=== PATIENT | male | born 1980 | race Hispanic/Latino ===

== ENCOUNTER 2018-10-11 06:03 | Emergency (ER) | payer BC, OTHER ==
[~2018-10-11] VITALS: Ht 167.6 cm; Wt 81.2 kg
--- OUTSIDE RECORDS SUMMARY | 2018-10-11 06:05 | XMS REPORT | Clinical Summary ---
Author Author [facility] Organization [facility] Address Unknown Phone Unavailable Care Team Providers Care Personnel Worker Name Role Phone Stephen Jay MD PCP Unavailable Allergies No Known Allergies Medications End Date Status Medication Sig Dispensed Refills Start Date 02/01/2018 methylPREDNISolone follow 21 tablet 0 (MEDROL DOSEPAK) 4 mg package 8 tablet directions Active Problems Not on file Encounters Care Team Description Date Type Specialty Kelly Horton MD Ptosis of eyelid, right (Primary Dx); Eyelid edema, right 03/10/2018 Office Visit Ophthalmology Kelly Horton MD Ptosis of eyelid, right (Primary Dx); Eyelid edema, right 01/27/2018 Office Visit Ophthalmology after 10/10/2017 Social History Date Tobacco Use Types Packs/Day Years Used Never Smoker Smokeless Tobacco: Never Used Alcohol Use Drinks/Week oz/Week Comments No Sex Assigned at Date Recorded Not on file Industry Job Start Date Occupation Not on file Not on file Not on file Travel End Travel History Travel Start No recent travel history available. Last Filed Vital Signs Not on file Plan of Treatment Health Maintenance Due Date Last Done Comments INFLUENZA VACCINE 02/10/2018 04/12/2012 Results Not on fileafter 10/10/2017 Insurance Payer Benefit Subscriber ID Type Phone Address Plan / Group BCBS BCBS xxxxxxxxxxxx PPO CHOICE PPO/SINDY CAMERON PPO (Home) [place] [address] Advance Directives Patient has advance care planning documents on file. For more information, dada noyola contact: Twin Yanez [address] [place] [phone]
[2018-10-11 06:52] LABS: BASOPHILS # (AUTO) 0.1 (0.0-0.1); BASOPHILS % 0.7 % (0.0-1.0); EOSINOPHILS % 0.1 % (0.0-6.0); HEMATOCRIT 61.5 % (38.2-49.6); HEMOGLOBIN 20.5 g/dL (14.0-18.0); LYMPHOCYTES # (AUTO) 2.6 (1.0-3.2); LYMPHOCYTES % 15.7 % (18.0-39.1); MEAN CORPUSCULAR HEMOGLOBIN 29.8 pg (28-32); MEAN CORPUSCULAR HGB CONC 33.3 g/dL (31-35); MEAN CORPUSCULAR VOLUME 89.3 fL (81-99); MONOCYTES % 6.4 % (4.4-11.3); NEUTROPHILS # (AUTO) 12.3 (2.1-6.9); NEUTROPHILS % 75.9 % (38.7-80.0); PLATELET COUNT 334 x10e3/uL (140-360); RED BLOOD COUNT 6.89 x10e6/uL (4.3-5.7); RED CELL DISTRIBUTION WIDTH 13.7 % (11.7-14.4)
--- NOTE | 2018-10-11 06:55 | Diagnostic Imaging Report ---
EXAMINATION: CHEST 2 VIEWS INDICATION: cough COMPARISON: None FINDINGS: PA and lateral views TUBES and LINES: None. LUNGS: There is no evidence of pneumonia or pulmonary edema. PLEURA: No pleural effusion or pneumothorax. HEART AND MEDIASTINUM: The cardiomediastinal silhouette is unremarkable. BONES AND SOFT TISSUES: No acute osseous lesion. Soft tissues are unremarkable. UPPER ABDOMEN: No free air under the diaphragm. IMPRESSION: No acute thoracic abnormality. Signed by: DR. Britton Junior MD on 10/11/2018 6:52 AM
[2018-10-11 07:07] LABS: ALBUMIN 3.7 g/dL (3.5-5.0); ALBUMIN/GLOBULIN RATIO 0.9 (0.8-2.0); ANION GAP 11.9 mmol/L (8-16); CALCIUM 9.7 mg/dL (8.4-10.2); CREATININE, SERUM 1.48 mg/dL (0.72-1.25); POTASSIUM 3.9 mmol/L (3.5-5.1)
[2018-10-11 07:13] LABS: CREATINE KINASE MB 5.4 ng/mL (0-5.0)
[2018-10-11] MEDS ORDERED: SODIUM CHLORIDE 0.9% 1000ML 1,000 ML IV ONE (07:45)
== END 2018-10-11 08:58 | disposition home or self-care (01) ==
LOC: ER 06:03
DX: R05 Cough (principal); J40 Bronchitis, not specified as acute or chronic
CPT/HCPCS: 36415; 71046; 80053; 82550; 82553; 84484; 85025; 85379; 93005; 99283; J7030

== ENCOUNTER 2018-10-25 17:13 | Emergency (ER) | payer BC ==
[~2018-10-25] VITALS: Ht 167.6 cm; Wt 82.6 kg
--- OUTSIDE RECORDS SUMMARY | 2018-10-25 17:15 | XMS REPORT | Clinical Summary ---
Author Author [employer] Organization [facility] Address Unknown Phone Unavailable Care Team Providers Care Global Coordinator Name Role Phone Stephen Jay MD PCP [...] edema, right 01/27/2018 Office Visit Ophthalmology after 10/24/2017 Social History Date Tobacco Use Types Packs/Day [...] Due Date Last Done Comments INFLUENZA VACCINE 02/10/2019 04/12/2012 Results Not on fileafter 10/24/2017 Insurance Payer Benefit Subscriber ID Type Phone Address Plan / Group BCBS BCBS xxxxxxxxxxxx PPO CHOICE PPO/SINDY CAMERON PPO (Home) [place] [address] Advance Directives Patient has advance care planning documents on file. For more information, dada noyola contact: Twin Yanez [address] [place] [phone]
--- OUTSIDE RECORDS SUMMARY | 2018-10-25 17:15 | XMS REPORT | Continuity of Care Document ---
Author Author [facility] Address Unknown Phone Unavailable Problems Problem Status Onset Date Classification Date Reported Comments Source Medications Medication Details Route Status Patient Instructions Ordering Provider Order Date Source Allergies, Adverse Reactions, Alerts Substance Category Reaction Severity Reaction type Status Date Reported Comments Source No Known Drug Allergies Unknown Allergy to Substance Active 10/11/2009 [facility] Immunizations Immunization Date Given Site Status Last Updated Comments Source Results Order Name Results Value Reference Range Date Interpretation Comments Source Blood leukocytes automated count (number/volume) 16.22 4.8 - 10.8 10/11/2018 [facility] Blood erythrocytes automated count (number/volume) 6.89 4.3 - 5.7 10/11/2018 [facility] Blood hemoglobin measurement (moles/volume) 20.5 14.0 - 18.0 10/11/2018 [facility] Automated blood hematocrit (volume fraction) 61.5 38.2 - 49.6 10/11/2018 [facility] Automated erythrocyte mean corpuscular volume 89.3 81 - 99 10/11/2018 [facility] Automated erythrocyte mean corpuscular hemoglobin (mass per erythrocyte) 29.8 28 - 32 10/11/2018 [facility] Automated erythrocyte mean corpuscular hemoglobin concentration measurement (mass/volume) 33.3 31 - 35 10/11/2018 [facility] RDW BldCo-Rto 13.7 11.7 - 14.4 10/11/2018 [facility] Automated blood platelet count (count/volume) 334 140 - 360 10/11/2018 [facility] Automated blood segmented neutrophil count as percentage of total leukocytes 75.9 38.7 - 80.0 10/11/2018 [facility] Automated blood lymphocyte count as percentage ot total leukocytes 15.7 18.0 - 39.1 10/11/2018 [facility] Automated blood monocyte count as percentage of total leukocytes 6.4 4.4 - 11.3 10/11/2018 [facility] Automated blood eosinophil count as percentage of total leukocytes 0.1 0.0 - 6.0 10/11/2018 [facility] Automated blood basophil count as percentage of total leukocytes 0.7 0.0 - 1.0 10/11/2018 [facility] IM GRANULOCYTES % 1.2 0.0 - 1.0 10/11/2018 [facility] Automated blood neutrophil count 12.3 2.1 - 6.9 10/11/2018 [facility] Blood lymphocytes count (number/volume) 2.6 1.0 - 3.2 10/11/2018 [facility] Blood monocytes automated count (number/volume) 1.0 0.2 - 0.8 10/11/2018 [facility] Automated blood eosinophil count 0.0 0.0 - 0.4 10/11/2018 [facility] Automated blood basophil count (count/volume) 0.1 0.0 - 0.1 10/11/2018 [facility] Absolute Immature Granulocyte (auto 0.19 0 - 0.1 10/11/2018 [facility] Fibrin D-dimer DDU measurement in platelet poor plasma (mass/volume) < 100 0 - 400 10/11/2018 [facility] Serum or plasma sodium measurement (moles/volume) 139 136 - 145 10/11/2018 [facility] Serum or plasma potassium measurement (moles/volume) 3.9 3.5 - 5.1 10/11/2018 [facility] Serum or plasma chloride measurement (moles/volume) 105 98 - 107 10/11/2018 [facility] Serum or plasma carbon dioxide, total measurement (moles/volume) 26 22 - 29 10/11/2018 [facility] Serum or plasma anion gap 11.9 8 - 16 10/11/2018 [facility] Serum or plasma urea nitrogen measurement (mass/volume) 13 7 - 26 10/11/2018 [facility] Serum or plasma creatinine measurement (mass/volume) 1.48 0.72 - 1.25 10/11/2018 [facility] Serum or plasma urea nitrogen/creatinine mass ratio 9 6 - 25 10/11/2018 [facility] Estimated glomerular filtration rate (GFR) determination 53 60 10/11/2018 [facility] Glucose measurement 115 74 - 118 10/11/2018 [facility] Serum or plasma calcium measurement (mass/volume) 9.7 8.4 - 10.2 10/11/2018 [facility] Serum or plasma total bilirubin measurement (mass/volume) 1.1 0.2 - 1.2 10/11/2018 [facility] Aspartate Amino Transf (AST/SGOT) 43 5 - 34 10/11/2018 [facility] Serum or plasma alanine aminotransferase measurement (enzymatic activity/volume) 74 0 - 55 10/11/2018 [facility] Serum or plasma protein measurement (mass/volume) 7.8 6.5 - 8.1 10/11/2018 [facility] Serum or plasma albumin measurement (mass/volume) 3.7 3.5 - 5.0 10/11/2018 [facility] Plasma globulin measurement (mass/volume) 4.1 2.3 - 3.5 10/11/2018 [facility] Serum or plasma albumin/globulin mass ratio 0.9 0.8 - 2.0 10/11/2018 [facility] Serum or plasma alkaline phosphatase measurement (enzymatic activity/volume) 52 40 - 150 10/11/2018 [facility] Serum or plasma creatine kinase measurement (enzymatic activity/volume) 522 30 - 200 10/11/2018 [facility] Serum or plasma creatine kinase MB measurement (mass/volume) 5.40 0 - 5.0 10/11/2018 [facility] Troponin I measurement by highly sensitive enzyme immunoassay 0.003 0 - 0.300 10/11/2018 [facility] Vital Signs Vital Sign Value Date Comments Source Encounters Location Location Details Encounter Type Encounter Number Reason For Visit Attending Provider ADM Date DC Date Status Source Departed Emergency Room [id number] KATHY WILSON MD 10/11/2018 10/11/2018 [facility] Procedures Procedure Code Date Perfomer Comments Source X-ray of chest, two views [id number] 10/11/2018 [facility]
--- OUTSIDE RECORDS SUMMARY | 2018-10-25 17:15 | XMS REPORT ---
Author Author [facility] Address Unknown Phone Unavailable Care Team Providers Care Metal Cleaner Name Role Phone Milan WILSON Unavailable Unavailable Problems This patient has no known problems. Allergies, Adverse Reactions, Alerts This patient has no known allergies or adverse reactions. Medications This patient has no known medications. Results Test Description Test Time Test Comments Text Results Atomic Results Result Comments CHEST 2 VIEWS 2018-10-11 06:50:00 [place] [address] Patient Name: EMILEE CADENA MR #: [id number] : 1980 Age/Sex: 38/M Req #: [id number] Adm Physician: Ordered by: KATHY WILSON MD Report #: [id number] Location: ER Room/Bed: Procedure: [id number] DX/CHEST 2 VIEWS Exam Date: 10/11/18 Exam Time: 0630 REPORT STATUS: Signed EXAMINATION: CHEST 2 VIEWS INDICATION: cough COMPARISON: None FINDINGS: PA and lateral views TUBES and LINES: None. LUNGS: There is no evidence of pneumonia or pulmonary edema. PLEURA: No pleural effusion or pneumothorax. HEART AND MEDIASTINUM: The cardiomediastinal silhouette is unremarkable. BONES AND SOFT TISSUES: No acute osseous lesion. Soft tissues are unremarkable. UPPER ABDOMEN: No free air under the diaphragm. IMPRESSION: No acute thoracic abnormality. Signed by: DR. Britton Junior MD on 10/11/2018 6:52 AM Dictated By: BRITTON JUNIOR MD 1 Transcribed By: ALMA ROSA on 10/11/18651 COPY TO: KATHY WILSON MD
[2018-10-25 18:26] LABS: BASOPHILS # (AUTO) 0.2 (0.0-0.1); EOSINOPHILS # (AUTO) 0.2 (0.0-0.4); EOSINOPHILS % 1.1 % (0.0-6.0); HEMATOCRIT 57.9 % (38.2-49.6); LYMPHOCYTES % 19.9 % (18.0-39.1); MEAN CORPUSCULAR HEMOGLOBIN 29.1 pg (28-32); MEAN CORPUSCULAR HGB CONC 32.8 g/dL (31-35); MEAN CORPUSCULAR VOLUME 88.8 fL (81-99); MONOCYTES # (AUTO) 1.3 (0.2-0.8); MONOCYTES % 8.8 % (4.4-11.3); NEUTROPHILS # (AUTO) 10.1 (2.1-6.9); NEUTROPHILS % 66.7 % (38.7-80.0); PLATELET COUNT 326 x10e3/uL (140-360); RED BLOOD COUNT 6.52 x10e6/uL (4.3-5.7); RED CELL DISTRIBUTION WIDTH 13.8 % (11.7-14.4)
[2018-10-25 18:49] LABS: ALBUMIN 3.5 g/dL (3.5-5.0); ALBUMIN/GLOBULIN RATIO 0.9 (0.8-2.0); ANION GAP 11.8 mmol/L (8-16); CALCIUM 9.5 mg/dL (8.4-10.2); CREATININE, SERUM 1.36 mg/dL (0.72-1.25); POTASSIUM 4.8 mmol/L (3.5-5.1)
[2018-10-25 19:02] LABS: AMPHETAMINES SCREEN,URINE NEGATIVE (NEGATIVE); BENZODIAZEPINES SCREEN,URINE NEGATIVE (NEGATIVE); PHENCYCLIDINE SCREEN,URINE NEGATIVE (NEGATIVE)
[2018-10-25 19:03] LABS: BILIRUBIN,URINE NEGATIVE (NEGATIVE); CLARITY,URINE SL CLOUDY (CLEAR); COLOR,URINE STRAW (YELLOW); KETONES,URINE NEGATIVE (NEGATIVE); LEUKOCYTE ESTERASE ,URINE NEGATIVE (NEGATIVE); NITRITE,URINE NEGATIVE (NEGATIVE); PROTEIN,URINE DIPSTICK TRACE (NEGATIVE); URINE UROBILINOGEN 0.2 mg/dL (0.2 - 1)
[2018-10-25 19:09] LABS: BACTERIA,URINE MODERATE /HPF; EPITHELIAL CELLS,URINE MODERATE /LPF; HYALINE CASTS 0-1 (0-1); MUCUS,URINE FEW (RARE)
[2018-10-25 20:36] LABS: PLATELET ESTIMATE ADEQUATE; PLATELET MORPHOLOGY COMMENT NORMAL; RBC MORPHOLOGY COMMENT NORMAL
[2018-10-25] MEDS ORDERED: ONDANSETRON HCL INJ 2MG/ML 2ML 2 MG/ML VIAL IV STA (21:25)
[2018-10-25] MEDS ORDERED: SODIUM CHLORIDE 0.9% 1000ML 1,000 ML IV ONE (21:30)
--- NOTE | 2018-10-25 22:05 | Diagnostic Imaging Report ---
Acute Abdominal Series CPT CODE: 11420 INDICATION: Hemoptysis. COMPARISON: None. FINDINGS: Single view of the chest shows no mass or infiltrate. Cardiomediastinal silhouette is unremarkable. Supine and erect views of the abdomen show unremarkable bowel gas pattern. No dilated bowel loops or air-fluid levels. No evidence of free air. Cholecystectomy clips are in the right upper quadrant. No evidence of calcification over the renal shadows or along the expected course of the ureters. Osseous structures and soft tissues are unremarkable. IMPRESSION: 1. Unremarkable bowel gas pattern. 2. Clear lungs. Signed by: Dr. Marilee Mitchell MD on 10/25/2018 10:01 PM
[2018-10-25 23:28] VITALS: BP 122/81
== END 2018-10-25 22:28 | disposition left against medical advice (07) ==
LOC: ER 17:13
DX: K92.0 Hematemesis (principal)
CPT/HCPCS: 36415; 74022; 80053; 80307; 81001; 85025; 93005; 96374; 99284; J2405; J7030

== ENCOUNTER 2021-06-20 07:41 | Emergency (ER) | payer BC ==
[~2021-06-20] VITALS: Ht 165.1 cm; Wt 74.8 kg
[2021-06-20] MEDS ORDERED: ASPIRIN 81 MG CHEW TAB PO STA (07:49)
[2021-06-20 08:01] LABS: BASOPHILS # (AUTO) 0.1 (0.0-0.1); BASOPHILS % 0.8 % (0.0-1.0); EOSINOPHILS # (AUTO) 0.2 (0.0-0.4); EOSINOPHILS % 1.8 % (0.0-6.0); HEMATOCRIT 56.3 % (38.2-49.6); HEMOGLOBIN 18.7 g/dL (14.0-18.0); LYMPHOCYTES # (AUTO) 1.9 (1.0-3.2); LYMPHOCYTES % 16.8 % (18.0-39.1); MEAN CORPUSCULAR HEMOGLOBIN 29.4 pg (28-32); MEAN CORPUSCULAR HGB CONC 33.2 g/dL (31-35); MEAN CORPUSCULAR VOLUME 88.5 fL (81-99); NEUTROPHILS # (AUTO) 7.9 (2.1-6.9); PLATELET COUNT 289 x10e3/uL (140-360); RED BLOOD COUNT 6.36 x10e6/uL (4.3-5.7); RED CELL DISTRIBUTION WIDTH 14.6 % (11.7-14.4)
[2021-06-20 08:11] LABS: INR 0.96; PROTHROMBIN TIME 13.6 seconds (11.9-14.5)
[2021-06-20 08:12] LABS: PARTIAL THROMBOPLASTIN TIME 28.1 seconds (23.8-35.5)
[2021-06-20 08:19] LABS: ALANINE AMINOTRANSFERASE 34 IU/L (0-55); ALBUMIN 3.9 g/dL (3.5-5.0); ALBUMIN/GLOBULIN RATIO 1.3 (0.8-2.0); ALKALINE PHOSPHATASE 43 IU/L (40-150); ANION GAP 11.8 mmol/L (8-16); BLOOD UREA NITROGEN 10 mg/dL (7-26); BUN/CREATININE RATIO 8 (6-25); CALCIUM 8.8 mg/dL (8.4-10.2); CARBON DIOXIDE 26 mmol/L (22-29); CHLORIDE 107 mmol/L (98-107); CREATINE KINASE 295 IU/L (30-200); EST GLOMERULAR FILTRATION RATE 66 ML/MIN (60-); GLUCOSE 85 mg/dL (74-118); POTASSIUM 3.8 mmol/L (3.5-5.1); SODIUM 141 mmol/L (136-145)
[2021-06-20] MEDS ORDERED: SODIUM CHLORIDE 0.9% 1000ML 1,000 ML IV STA (08:35)
[2021-06-20] MEDS ORDERED: ASPIRIN 81 MG CHEW TAB ONE (08:50)
[2021-06-20 10:34] VITALS: BP 138/85
== END 2021-06-20 10:35 | disposition home or self-care (01) ==
LOC: ER 07:58
DX: R07.89 Other chest pain (principal); E86.0 Dehydration; D69.6 Thrombocytopenia, unspecified; K21.9 Gastro-esophageal reflux disease without esophagitis; G47.30 Sleep apnea, unspecified; G25.81 Restless legs syndrome
CPT/HCPCS: 36415; 71045; 80053; 82550; 82553; 83880; 84484; 85025; 85610; 85730; 93005; 99284; J7030

== ENCOUNTER 2022-02-18 08:04 | Emergency (ER) | payer BC ==
[~2022-02-18] VITALS: Ht 165.1 cm; Wt 74.8 kg
[2022-02-18] MEDS ORDERED: SODIUM CHLORIDE 0.9% 1000ML 1,000 ML IV STA (08:20)
[2022-02-18 09:03] LABS: BASOPHILS # (AUTO) 0.1 (0.0-0.1); BASOPHILS % 0.6 % (0.0-1.0); EOSINOPHILS % 0.4 % (0.0-6.0); HEMATOCRIT 51.6 % (38.2-49.6); LYMPHOCYTES # (AUTO) 1.5 (1.0-3.2); LYMPHOCYTES % 13.6 % (18.0-39.1); MEAN CORPUSCULAR HEMOGLOBIN 30.6 pg (28-32); MEAN CORPUSCULAR HGB CONC 34.9 g/dL (31-35); MEAN CORPUSCULAR VOLUME 87.6 fL (81-99); MONOCYTES # (AUTO) 0.9 (0.2-0.8); MONOCYTES % 8.5 % (4.4-11.3); NEUTROPHILS # (AUTO) 8.2 (2.1-6.9); NEUTROPHILS % 74.8 % (38.7-80.0); PLATELET COUNT 266 x10e3/uL (140-360); RED BLOOD COUNT 5.89 x10e6/uL (4.3-5.7); RED CELL DISTRIBUTION WIDTH 13.2 % (11.7-14.4)
[2022-02-18 09:17] LABS: INR 1.04; PROTHROMBIN TIME 14.5 seconds (11.9-14.5)
[2022-02-18 09:18] LABS: PARTIAL THROMBOPLASTIN TIME 27.9 seconds (23.8-35.5)
[2022-02-18 09:21] LABS: ALBUMIN 3.7 g/dL (3.5-5.0); ALBUMIN/GLOBULIN RATIO 1.1 (0.8-2.0); ANION GAP 11.4 mmol/L (8-16); CALCIUM 8.6 mg/dL (8.4-10.2); CREATININE, SERUM 1.08 mg/dL (0.72-1.25); MAGNESIUM 1.8 MG/DL (1.3-2.1); POTASSIUM 3.4 mmol/L (3.5-5.1)
[2022-02-18 09:29] LABS: CREATINE KINASE MB 2.5 ng/mL (0-5.0)
== END 2022-02-18 10:33 | disposition home or self-care (01) ==
LOC: ER 08:09
DX: R42 Dizziness and giddiness (principal); H10.13 Acute atopic conjunctivitis, bilateral; D75.1 Secondary polycythemia; K21.9 Gastro-esophageal reflux disease without esophagitis; G47.30 Sleep apnea, unspecified; G25.81 Restless legs syndrome; R94.31 Abnormal electrocardiogram [ECG] [EKG]
CPT/HCPCS: 36415; 70450; 80053; 82550; 82553; 83735; 84484; 85025; 85610; 85730; 93005; 99284; J7030